=== PATIENT | female | born 1975 | race African-American/Black ===

== ENCOUNTER → 2017-01-05 | Outpatient (CLI) | payer BC, OTHER ==
--- NOTE | 2017-01-06 07:45 | MM ---
Reason for exam: screening (asymptomatic). Last mammogram was performed 1 year and 3 months ago. History: Patient is postmenopausal. Family history of breast cancer in aunt at age 40. Physical Findings: A clinical breast exam by your physician is recommended on an annual basis and results should be correlated with mammographic findings. MG Screening Mammo w CAD Bilateral CC and MLO view(s) were taken. Prior study comparison: October 17, 2015, bilateral MG screening mammo w CAD. August 03, 2014, bilateral MG diagnostic mammo w CAD NATALIE. The breast tissue is heterogeneously dense. This may lower the sensitivity of mammography. No significant changes when compared with prior studies. ASSESSMENT: Negative, BI-RAD 1 RECOMMENDATION: Routine screening mammogram of both breasts in 1 year.
== END | disposition home or self-care (01) ==
LOC: RADMAMWWP 07:15
PROVIDERS: ATTEND Obstetrics & Gynecology
DX: Z12.31 Encounter for screening mammogram for malignant neoplasm of breast (principal)

== ENCOUNTER 2017-06-17 13:08 | Emergency (ER) | payer OTHER ==
[2017-06-17] MEDS ORDERED: FAMOTIDINE 20 MG/2 ML VIAL IV STA (13:42)
[2017-06-17] MEDS ORDERED: SODIUM CHLORIDE 0.9% 1,000 ML IV STA (13:42)
[2017-06-17] MEDS ORDERED: METOCLOPRAMIDE 5 MG/ML 2 ML VIAL IVP STA (13:43)
--- NOTE | 2017-06-17 13:58 | ED ---
General Adult HPI - General Chief complaint: Abdominal Pain Stated complaint: Abd Pain Time Seen by Provider: 06/17/17 13:18 Source: patient, RN notes reviewed Mode of arrival: ambulatory Limitations: no limitations - History of Present Illness Initial comments: 42 yo female presents to the ER with cc of chronic abdominal pain. Patient states she has had this pain on and off for the last few months. Patient stated was on the center abdomen in and out to the sides. Patient states she has nausea without vomiting. Patient states she started after he did some stool studies and some blood work he stated everything looked good. She states today that the pain is just here and it seems worse so she thought that she should be seen. He doesn't history of diabetes. Patient denies any abdominal surgeries. Patient states this pain started over the last few months. Patient denies any other symptoms at this time. Patient denies any recent fever, chills , shortness of breath, chest pain, back pain, vomiting, numbness or tingling, dysuria or hematuria, constipation or diarrhea, headaches or visual changes, or any other current symptoms. - Related Data Home Medications Medication Instructions Recorded Confirmed Cholecalciferol (Vitamin D3) 2,000 unit PO DAILY 06/17/17 06/17/17 [Vitamin D3] Glimepiride [Amaryl] 1 mg PO AC-BID 06/17/17 06/17/17 Multivitamins, Thera [Multivitamin 1 tab PO DAILY 06/17/17 06/17/17 (formulary)] Sumner-3 Fatty Acids/Fish Oil [Fish 1 cap PO DAILY 06/17/17 06/17/17 Oil 1,000 mg Softgel] Pravastatin Sodium [Pravachol] 40 mg PO HS 06/17/17 06/17/17 metFORMIN HCL 1,000 mg PO BID 06/17/17 06/17/17 sitaGLIPtin [Januvia] 100 mg PO DAILY 06/17/17 06/17/17 Previous Rx's Medication Instructions Recorded Ciprofloxacin HCl [Cipro] 500 mg PO Q12HR #14 tablet 06/17/17 Ondansetron Odt [Zofran ODT] 4 mg PO Q8HR PRN #20 tab 06/17/17 metroNIDAZOLE [Flagyl] 500 mg PO TID #21 tab 06/17/17 Allergies Allergy/AdvReac Type Severity Reaction Status Date / Time No Known Allergies Allergy Verified 06/17/17 13:33 Review of Systems ROS Statement: Those systems with pertinent positive or pertinent negative responses have been documented in the HPI. ROS Other: All systems not noted in ROS Statement are negative. Past Medical History Past Medical History: Diabetes Mellitus History of Any Multi-Drug Resistant Organisms: None Reported Past Surgical History: Appendectomy, Cholecystectomy, Hysterectomy Past Psychological History: No Psychological Hx Reported Smoking Status: Current every day smoker Past Alcohol Use History: Rare Past Drug Use History: None Reported General Exam - General Exam Comments Initial Comments: General: The patient is awake and alert, in no distress, and does not appear acutely ill. Eye: Pupils are equal, round and reactive to light, extra-ocular movements are intact; there is normal conjunctiva bilaterally. No signs of icterus. Ears, nose, mouth and throat: There are moist mucous membranes. Neck: The neck is supple, there is no tenderness. Cardiovascular: There is a regular rate and rhythm. No murmur, rub or gallop is appreciated. Respiratory: Lungs are clear to auscultation, respirations are non-labored, breath sounds are equal. No wheezes, stridor, rales, or rhonchi. Gastrointestinal: Soft, non-distended, non-tender abdomen without masses or organomegaly noted. There is no rebound or guarding present. No CVA tenderness. Bowel sounds are unremarkable. Back: There is no tenderness to palpation in the midline. There is no obvious deformity. No rashes noted. Musculoskeletal: Normal ROM, no tenderness, There is no pedal edema. There is no calf tenderness or swelling. Sensation intact. Pulses equal bilaterally 2+. Neurological: CN II-XII intact, There are no obvious motor or sensory deficits. Coordination appears grossly intact. Speech is normal. Skin: Skin is warm and dry and no rashes or lesions are noted. Psychiatric: Cooperative, appropriate mood & affect, normal judgment. Limitations: no limitations Course Vital Signs 06/17/17 06/17/17 13:11 14:40 Temperature 98.2 F 97.1 F L Pulse Rate 90 77 Respiratory 16 20 Rate Blood Pressure 152/83 129/74 O2 Sat by Pulse 100 100 Oximetry Medical Decision Making - Medical Decision Making 42-year-old female presents to the emergency department with a chief complaint of chronic abdominal pain. At this time lab work was reviewed that shows mildly elevated lipase. CAT scan shows colitis versus diverticulitis. We will treat her diverticulitis. We discussed follow-up with with GI. We discussed using medications as prescribed. Discussed return parameters all patient's questions. Patient stated she understood and she is given plan. All questions have been answered. Patient will be discharged home. - Lab Data Result diagrams: 06/17/17 13:53 06/17/17 13:53 Lab Results 06/17/17 06/17/17 06/17/17 Range/Units 13:53 13:53 13:53 WBC 8.5 (3.8-10.6) k/uL RBC 4.89 (3.80-5.40) m/uL Hgb 15.6 (11.4-16.0) gm/dL Hct 45.3 (34.0-46.0) % MCV 92.6 (80.0-100.0) fL MCH 32.0 (25.0-35.0) pg MCHC 34.6 (31.0-37.0) g/dL RDW 14.3 (11.5-15.5) % Plt Count 448 (150-450) k/uL Neutrophils % 49 % Lymphocytes % 44 % Monocytes % 4 % Eosinophils % 2 % Basophils % 1 % Neutrophils # 4.2 (1.3-7.7) k/uL Lymphocytes # 3.7 (1.0-4.8) k/uL Monocytes # 0.3 (0-1.0) k/uL Eosinophils # 0.2 (0-0.7) k/uL Basophils # 0.1 (0-0.2) k/uL Sodium 141 (137-145) mmol/L Potassium 4.2 (3.5-5.1) mmol/L Chloride 105 (98-107) mmol/L Carbon Dioxide 22 (22-30) mmol/L Anion Gap 14 mmol/L BUN 9 (7-17) mg/dL Creatinine 0.69 (0.52-1.04) mg/dL Est GFR (MDRD) Af Amer >60 (>60 ml/min/1.73 sqM) Est GFR (MDRD) Non-Af >60 (>60 ml/min/1.73 sqM) Glucose 117 H (74-99) mg/dL Calcium 9.9 (8.4-10.2) mg/dL Total Bilirubin 0.3 (0.2-1.3) mg/dL AST 21 (14-36) U/L ALT 34 (9-52) U/L Alkaline Phosphatase 75 (38-126) U/L Total Protein 7.5 (6.3-8.2) g/dL Albumin 4.7 (3.5-5.0) g/dL Amylase 67 (30-110) U/L Lipase 347 H (23-300) U/L Urine Color Light Yellow Urine Appearance Clear (Clear) Urine pH 6.0 (5.0-8.0) Ur Specific Atco 1.007 (1.001-1.035) Urine Protein Negative (Negative) Urine Glucose (UA) Negative (Negative) Urine Ketones Negative (Negative) Urine Blood Trace H (Negative) Urine Nitrite Negative (Negative) Urine Bilirubin Negative (Negative) Urine Urobilinogen <2.0 (<2.0) mg/dL Ur Leukocyte Esterase Negative (Negative) Urine RBC 2 (0-5) /hpf Urine WBC <1 (0-5) /hpf Ur Squamous Epith Cells 1 (0-4) /hpf Urine Bacteria Rare H (None) /hpf Urine Mucus Rare H (None) /hpf - Radiology Data Radiology results: report reviewed, image reviewed Disposition Clinical Impression: Colitis, Elevated lipase, Diverticulitis Disposition: HOME SELF-CARE Condition: Stable Instructions: Colitis (ED), Diverticulitis (ED) Additional Instructions: Please use medication as discussed. Please follow up with family doctor if symptoms have not improved over the next two days. Please return to the emergency room if your symptoms increase or worsen or for any other concerns. Prescriptions: Ciprofloxacin HCl [Cipro] 500 mg PO Q12HR #14 tablet metroNIDAZOLE [Flagyl] 500 mg PO TID #21 tab Ondansetron Odt [Zofran ODT] 4 mg PO Q8HR PRN #20 tab PRN Reason: Nausea Referrals: Bijan Sawyer MD [Primary Care Provider] - 1-2 days Time of Disposition: 15:31
[2017-06-17 14:18] LABS: Basophils # (A) 0.1 k/uL (0-0.2); Basophils % (A) 1 %; CH 33.2; Eosinophils # (A) 0.2 k/uL (0-0.7); Eosinophils % (A) 2 %; HCT 45.3 % (34.0-46.0); HDW 3.01; HGB 15.6 gm/dL (11.4-16.0); Luc # (Auto) 0.09; Luc % (Auto) 1; Lymphocytes # (A) 3.7 k/uL (1.0-4.8); Lymphocytes % (A) 44 %; MCHC 34.6 g/dL (31.0-37.0); MCV 92.6 fL (80.0-100.0); Mean Platelet Volume 6.7; Monocytes # (A) 0.3 k/uL (0-1.0); Monocytes % (A) 4 %; Neutrophils # (A) 4.2 k/uL (1.3-7.7); Neutrophils % (A) 49 %; RBC 4.89 m/uL (3.80-5.40); RDW 14.3 % (11.5-15.5); WBC 8.5 k/uL (3.8-10.6); WBC (Perox) 8.94
[2017-06-17 14:25] LABS: Appearance,Urine Clear (Clear); Bacteria,Urine Rare /hpf; Bilirubin,Urine Negative (Negative); Glucose,Urine (UA) Negative (Negative); Ketones,Urine Negative (Negative); Leukocyte Esterase,Urine Negative (Negative); Mucus,Urine Rare /hpf; Nitrite,Urine Negative (Negative); Particle Count 884; Protein,Urine Negative (Negative); RBC,Urine 2 /hpf (0-5); Specific Gravity,Urine 1.007 (1.001-1.035); Squamous Epithelial Cell,Urine 1 /hpf (0-4); UA Billing (MACRO vs. MICRO) MICRO; Urobilinogen,Urine <2.0 mg/dL (<2.0); WBC,Urine <1 /hpf (0-5)
[2017-06-17 14:31] LABS: ALT 34 U/L (9-52); AST 21 U/L (14-36); Alkaline Phosphatase 75 U/L (38-126); Amylase 67 U/L (30-110); Anion Gap 14 mmol/L; Blood Urea Nitrogen 9 mg/dL (7-17); Calcium 9.9 mg/dL (8.4-10.2); Carbon Dioxide 22 mmol/L (22-30); Chloride 105 mmol/L (98-107); Glucose 117 mg/dL (74-99); Non-African American GFR(MDRD) >60 (>60 ml/min/1.73 sqM); Potassium 4.2 mmol/L (3.5-5.1); Sodium 141 mmol/L (137-145); Total Bilirubin 0.3 mg/dL (0.2-1.3); Total Protein 7.5 g/dL (6.3-8.2)
[2017-06-17] MEDS ORDERED: RX INFO: IV CONTRAST WAS GIVEN 1 EACH MISC MISCELLANE PRN (14:37)
[2017-06-17 14:41] VITALS: TEMP 97.1
--- NOTE | 2017-06-17 15:23 | CT ---
EXAMINATION TYPE: CT abdomen pelvis w con DATE OF EXAM: 06/17/2017 HISTORY: Generalized abdominal pain with nausea and chills. CT DLP: 1085.00mGycm Automated Exposure Control for Dose Reduction was Utilized. CONTRAST: CT scan of the abdomen and pelvis is performed with IV Contrast, patient injected with 100 mL of Omni paque 300. COMPARISON: 04/08/2011 FINDINGS: LUNG BASES: No significant abnormality is appreciated. LIVER/GB: Focal fatty infiltration is seen as a geographic wedge-shaped area of hypoattenuation in se gment IVb near the fissure for the ligamentum teres. Remainder of the liver is grossly unremarkable w ith no evidence of intrahepatic biliary ductal dilatation. Cholecystectomy clips are noted within the gallbladder fossa.. PANCREAS: No significant abnormality is seen. SPLEEN: No significant abnormality is seen. ADRENALS: No significant abnormality is seen. KIDNEYS: No significant abnormality is seen. BOWEL: The descending colon is predominantly decompressed but felt to display mild colonic thickening with subtle inflammatory fat stranding as seen on series 3 image 47 and 48. Single adjacent divertic ulum is noted. Thickening is suspected to measure up to 1.1 cm. Transverse colon, ascending colon and cecum are stool and air-filled without bowel wall thickening. Diastases recti is incidentally noted. UTERUS/ADNEXA: 2.0 cm left adnexal lesion likely represents a dominant follicle. LYMPH NODES: No greater than 1cm abdominal or pelvic lymph nodes are appreciated. OSSEOUS STRUCTURES: Bilateral sacroiliac joint sclerosis, more notably on the iliac bones may be dege nerative or could be related to inflammatory bowel disease. This is thought to be considered less lik aline. IMPRESSION: 1. Mild bowel wall thickening and subtle pericolonic fat stranding of the descending colon thought to represent mild colitis versus early diverticulitis is a single adjacent diverticulum is seen. 2. Probable dominant left ovarian cyst. 3. Symmetric sacroiliac joint sclerosis is likely degenerative, however can be associated with inflam matory bowel disease.
[2017-06-17 15:57] VITALS: BP 133/78; PULSE 76; RESP 16
== END 2017-06-17 15:56 | disposition home or self-care (01) ==
LOC: EC 13:08
DX: K52.9 Noninfective gastroenteritis and colitis, unspecified (principal); K57.92 Diverticulitis of intestine, part unspecified, without perforation or abscess without bleeding; R74.8 Abnormal levels of other serum enzymes; E11.9 Type 2 diabetes mellitus without complications; F17.200 Nicotine dependence, unspecified, uncomplicated; Z79.84 Long term (current) use of oral hypoglycemic drugs; Z79.899 Other long term (current) drug therapy; Z90.49 Acquired absence of other specified parts of digestive tract
CPT/HCPCS: 36415; 80053; 82150; 83690; 85025; 81001; 74177; 99284; 96374; 96375; 96361 ×2; J2765; Q9967

== ENCOUNTER 2018-05-10 07:11 | Day surgery (SDC) | payer OTHER ==
[2018-05-06 13:21] VITALS: BMI 25.6
[~2018-05-10 07:11] MED LIST: LACTATED RINGERS 1,000 ML IV SCH; LIDOCAINE 1% 20 ML VIAL (10MG/ML) FOR IV START INTRADERMA PRN; MIDAZOLAM 2 MG/2 ML VIAL IV PRN
[2018-05-10 07:50] VITALS: TEMP 98.2
[2018-05-10 07:55] LABS: Glucose,Whole Blood 207 mg/dL (75-99)
[2018-05-10] MEDS ORDERED: PROPOFOL 10 MG/ML 20 ML VIAL IV ONE (08:23)
[2018-05-10] MEDS ORDERED: GLYCOPYRROLATE 0.2 MG/ML 2 ML VIAL ONE (08:23)
[2018-05-10] MEDS ORDERED: LIDOCAINE 1% INJ 10MG/ML (20 ML MDV) ONE (08:23)
[2018-05-10 09:02] VITALS: RESP 18
--- NOTE | 2018-05-10 09:03 | P.PCN ---
Date of Procedure: 05/10/18 Procedure(s) Performed: Procedure: 1. Esophagogastroduodenoscopy and biopsy. 2. Coloscopy and polypectomy and biopsy. Preoperative diagnosis: Change in bowel habits and blood in the stools. Postoperative diagnosis: 1. Small sliding hiatal hernia with no obvious esophagitis or complicated reflux disease. 2. Mild antral gastritis. 3. Small sigmoid polyp snared but no large polyps or cancer or other abnormalities in the colon. 4. Biopsies obtained from the right colon to rule out microscopic colitis. 5. Low-grade internal hemorrhoids without bleeding at the time of this exam. Preparation: HalfLytely prep. Sedation: Was provided by anesthesia. Brief clinical history: The patient is a 42-year-old female who is scheduled for this evaluation for the above reasons. The purposes to rule out inflammatory bowel disease, neoplasia or celiac disease. Procedure: With the patient on her left lateral decubitus position and after informed consent and adequate sedation, I passed the Olympus-GIF 160 video upper endoscope through the cricopharyngeus down the esophagus. GE junction was around 36 cm from the incisors and there was a small sliding hiatal hernia but no obvious esophagitis or complicated reflux disease. The endoscope was then passed into the stomach which was insufflated with air and inspected in detail including the retroflex view in the cardia. There was some mottling and erythema in the antrum consistent with mild gastritis but no ulcers or erosions. Pyloric channel, duodenal bulb, post bulbar area and descending duodenum appeared within normal limits. I obtained biopsies from the duodenum antrum and esophagus then the endoscope was withdrawn and I proceeded with the colonoscopy. Perianal area did not show any fissures or fistulas. There were no masses felt on digital rectal examination. The Olympus CFQ 160L video colonoscope was then inserted in the rectum in the usual fashion and advanced to the cecum. There was a small polyp in the distal sigmoid which I snared and retrieved by suction but there were no large polyps or cancer. The mucosa appeared healthy. He was no obvious diverticular disease or other pathology. I obtained biopsies from the right colon to rule out microscopic colitis. I retroflexed the endoscope in the rectum before the endoscope was withdrawn. Low-grade internal hemorrhoids were noted with no evidence of bleeding. The patient tolerated the procedure well. Plan: The patient was reassured. Will await biopsy results and make additional recommendations. I anticipate repeating her colonoscopy in 5 years. She will follow-up with you as planned.
[2018-05-10 09:28] VITALS: BP 130/86; PULSE 77
[2018-05-10 12:17] LABS: Glucose,Whole Blood 173 mg/dL (75-99)
== END 2018-05-10 09:51 | disposition home or self-care (01) ==
LOC: ORWHC2ENDO 07:11
DX: K29.51 Unspecified chronic gastritis with bleeding (principal); B96.81 Helicobacter pylori [H. pylori] as the cause of diseases classified elsewhere; K44.9 Diaphragmatic hernia without obstruction or gangrene; K64.8 Other hemorrhoids; D12.5 Benign neoplasm of sigmoid colon; E78.5 Hyperlipidemia, unspecified; F17.210 Nicotine dependence, cigarettes, uncomplicated; E11.9 Type 2 diabetes mellitus without complications; Z79.84 Long term (current) use of oral hypoglycemic drugs; Z79.899 Other long term (current) drug therapy
CPT/HCPCS: 88305; 88342; 45380; 45385; 43239; J2001; J2704

== ENCOUNTER → 2018-12-07 | Outpatient (CLI) | payer OTHER ==
--- NOTE | 2018-12-07 09:18 | US ---
EXAMINATION TYPE: US thyroid st tissue head/neck DATE OF EXAM: 12/07/2018 COMPARISON: NONE; NM exam today CLINICAL HISTORY: E05.90 thyrotoxicosis, unspecified without thyrotox;; hyperthyroidism GLAND SIZE: Right Lobe: 4.8 x 1.5 x 1.2 cm Overall Parenchyma: homogenous Left Lobe: 4.2 x 1.6 x 1.3 cm Overall Parenchyma: homogeneous Isthmus Thickness: 0.47 cm NODULES RIGHT: # of nodules measured on right: 0 LEFT: # of nodules measured on left: 1 1. 0.4 X 0.2 x 0.1 cm hypoechoic cystic nodule at the mid pole with well-defined margins. This nod ule is wider than tall and shows no intranodular vascularity. ISTHMUS: # of nodules measured in the isthmus: 0 Bilateral neck scanned: no evidence of lymphadenopathy. IMPRESSION: Subcentimeter nonspecific nodule left thyroid lobe. Mild thyroid enlargement.
[2018-12-07 11:21] LABS: T4, Free (Free Thyroxine) 0.97 ng/dL (0.78-2.19)
--- NOTE | 2018-12-08 11:59 | NM ---
EXAMINATION TYPE: NM thyroid image w uptake DATE OF EXAM: 12/08/2018 COMPARISON: 12/07/2018 ultrasound HISTORY: 43-year-old female thyrotoxicosis, unspecified TECHNIQUE: Thyroid iodine uptake is calculated and images performed after the oral administration of 300 uCi 1-123 Capsule. FINDINGS: Aside from a possible exophytic warm nodule from the lower pole of the right thyroid lobe, there is n ormal distribution of activity throughout the gland. The 4 hour iodine uptake is calculated at 10.5% (normal range 8-14%). The 24-hour iodine uptake is calculated at 21.7% (normal range 15-35%). IMPRESSION: 1. Possible partially exophytic warm nodule from the lower pole of the right thyroid lobe. Consider s hort interval follow-up thyroid ultrasound with particular attention to this region. 2. Otherwise, normal thyroid scan and uptake measurements.
== END | disposition home or self-care (01) ==
LOC: RADUSMAIN 08:21
PROVIDERS: ATTEND Internal Medicine Endocrinology, Diabetes & Metabolism
DX: E04.1 Nontoxic single thyroid nodule (principal); E05.90 Thyrotoxicosis, unspecified without thyrotoxic crisis or storm
CPT/HCPCS: 84439; 84445; 84443; 84480; 76536; 78014; A9516

== ENCOUNTER → 2019-03-30 | Outpatient (CLI) | payer OTHER ==
[2019-03-30 15:57] LABS: Basophils % (A) 0 %; Eosinophils # (A) 0.2 k/uL (0-0.7); Eosinophils % (A) 2 %; HCT 46.2 % (34.0-46.0); HGB 15.2 gm/dL (11.4-16.0); Lymphocytes # (A) 3.5 k/uL (1.0-4.8); Lymphocytes % (A) 33 %; MCH 30.7 pg (25.0-35.0); MCHC 32.9 g/dL (31.0-37.0); MCV 93.3 fL (80.0-100.0); Mean Platelet Volume 5.9; Monocytes # (A) 0.4 k/uL (0-1.0); Monocytes % (A) 4 %; Neutrophils # (A) 6.2 k/uL (1.3-7.7); Neutrophils % (A) 59 %; Platelet Count 476 k/uL (150-450); RBC 4.95 m/uL (3.80-5.40); RDW 12.2 % (11.5-15.5); WBC 10.5 k/uL (3.8-10.6)
[2019-03-30 16:04] LABS: Potassium 4.7 mmol/L (3.5-5.1)
[2019-03-30 16:05] LABS: ALT 18 U/L (9-52); AST 14 U/L (14-36); African American GFR (CKD) >90 (>60 ml/min/1.73 sqM); Albumin 4.8 g/dL (3.5-5.0); Alkaline Phosphatase 100 U/L (38-126); Anion Gap 11 mmol/L; Blood Urea Nitrogen 16 mg/dL (7-17); Calcium 10.7 mg/dL (8.4-10.2); Carbon Dioxide 30 mmol/L (22-30); Chloride 98 mmol/L (98-107); Glucose 112 mg/dL (74-99); Sodium 139 mmol/L (137-145); Total Bilirubin 0.4 mg/dL (0.2-1.3); Total Protein 7.9 g/dL (6.3-8.2)
--- NOTE | 2019-03-30 17:12 | CT ---
EXAMINATION TYPE: CT abdomen pelvis w con DATE OF EXAM: 03/30/2019 COMPARISON: 06/17/2017 HISTORY: Abdomen pain, constipation x1 week. Hx partial hysterectomy, appy, ramesh. CT DLP: 445.50 mGycm Automated exposure control for dose reduction was used. TECHNIQUE: Helical acquisition of images was performed from the lung bases through the pelvis. CONTRAST: Performed with Oral Contrast and with IV Contrast, patient injected with 100 mL of Isovue 300. FINDINGS: Lung bases are clear. There is no pleural effusion. Heart appears normal. Liver spleen pancreas appear normal. Bile ducts are not dilated. There are clips from cholecystectomy . Stomach appears normal. There is no adrenal mass. Kidneys show satisfactory contrast opacification. There is no hydronephrosi s. Ureters are not dilated. There is no retroperitoneal adenopathy. There are scattered retroperitone al lymph nodes measure less than 1 cm. Bladder distends smoothly. There is apparent hysterectomy. The re is 5.5 cm thin-walled cystic mass in the pelvis on the left sided could be ovarian cyst. There is no free fluid in the pelvis. There is no inguinal hernia. There is no mesenteric edema. There is no evidence of a bowel obstruction. There is no ascites or olivia e air. There is no definite intestinal wall thickening. Lumbar vertebra have normal spacing and align ment. Bony pelvis is intact. I see no focal bone destruction. IMPRESSION: THERE IS A LARGE CYST ON THE LEFT SIDE OF THE PELVIS CONSISTENT WITH OVARIAN CYST THAT IS SIGNIFICANT LY INCREASED IN SIZE COMPARED TO OLD CT SCAN.
[2019-03-30 17:19] LABS: Erythrocyte Sedimentation Rate 54 mm/hr (0-20)
== END | disposition home or self-care (01) ==
LOC: RADCTMAIN 14:48
PROVIDERS: ATTEND Internal Medicine
DX: N94.89 Other specified conditions associated with female genital organs and menstrual cycle (principal); R10.9 Unspecified abdominal pain
CPT/HCPCS: 80053; 85652; 85025; 74177; 36415; Q9967 ×2

== ENCOUNTER 2019-10-13 18:57 | Emergency (ER) | payer OTHER ==
[2019-10-13 19:15] VITALS: RESP 18
[2019-10-13] MEDS ORDERED: SODIUM CHLORIDE 0.9% 1,000 ML IV STA (19:29)
[2019-10-13] MEDS ORDERED: KETOROLAC 30 MG/ML 1 ML VIAL IVP STA (19:29)
--- NOTE | 2019-10-13 19:58 | ED ---
Abdominal Pain HPI - General Chief Complaint: Abdominal Pain Stated Complaint: Rt sided flank pain Time Seen by Provider: 10/13/19 19:16 Source: patient Mode of arrival: ambulatory Limitations: no limitations - History of Present Illness Initial Comments: Patient is a 44-year-old female presenting to emergency Department with complaints of right flank pain with radiation that has been increasing over the past 5 days. Patient states the pain started in her right flank and has been extending onto her right side and even down into her right lower quadrant. Patient does have a history of cholecystectomy, appendectomy, partial hysterectomy. She denies history kidney stones. Patient states she went to her [facility] last week and was diagnosed with a yeast infection so she has been taking medicine for that. Patient denies any other vaginal complaints. No concerns for STDs. She did have some dysuria last week when she went to the city planning aide office that they said there is no signs of infection on her UA. Patient has been having regular bowel movements. She denies fever, vomiting, diarrhea. She does admit to mild nausea. She states she's never had this kind of pain before. She describes it as very sharp and constant in nature. She denies any trauma or injuries. She has no other complaints at this time. Upon arrival to ER, patient was slightly tachycardia at 105, rest of vitals are normal. - Related Data Home Medications Medication Instructions Recorded Confirmed Cholecalciferol (Vitamin D3) 2,000 unit PO DAILY 06/17/17 05/06/18 [Vitamin D3] Glimepiride [Amaryl] 1 mg PO AC-BID 06/17/17 05/06/18 Multivitamins, Thera [Multivitamin 1 tab PO DAILY 06/17/17 05/06/18 (formulary)] [place]-3 Fatty Acids/Fish Oil [Fish 1 cap PO DAILY 06/17/17 05/06/18 Oil 1,000 mg Softgel] Pravastatin Sodium [Pravachol] 40 mg PO HS 06/17/17 05/10/18 metFORMIN HCL 1,000 mg PO BID 06/17/17 05/06/18 sitaGLIPtin [Januvia] 100 mg PO DAILY 06/17/17 05/10/18 Previous Rx's Medication Instructions Recorded Ketorolac [Toradol] 10 mg PO Q8HR #15 tab 10/13/19 Tamsulosin [Flomax] 0.4 mg PO DAILY #7 cap 10/13/19 Allergies Allergy/AdvReac Type Severity Reaction Status Date / Time No Known Allergies Allergy Verified 10/13/19 19:12 Review of Systems ROS Statement: Those systems with pertinent positive or pertinent negative responses have been documented in the HPI. ROS Other: All systems not noted in ROS Statement are negative. Past Medical History Past Medical History: Diabetes Mellitus Additional Past Medical History / Comment(s): hx blood in stool History of Any Multi-Drug Resistant Organisms: None Reported Past Surgical History: Appendectomy, Cholecystectomy, Hysterectomy Past Anesthesia/Blood Transfusion Reactions: No Reported Reaction Past Psychological History: No Psychological Hx Reported Smoking Status: Current every day smoker Past Alcohol Use History: Occasional Past Drug Use History: None Reported - Past Family History Father Family Medical History: Cancer General Exam - General Exam Comments Initial Comments: GENERAL: Patient is sitting very still on the side of the bed, appears very uncomfortable.. HEAD: Atraumatic, normocephalic. EYES: Pupils equal round and reactive to light, extraocular movements intact, sclera anicteric, conjunctiva are normal. ENT: TMs normal, nares patent, oropharynx clear without exudates. Moist mucous membranes. NECK: Normal range of motion, supple without lymphadenopathy or JVD. LUNGS: Breath sounds clear to auscultation bilaterally and equal. No wheezes rales or rhonchi. HEART: Regular rate and rhythm without murmurs, rubs or gallops. ABDOMEN: Tender to palpation of the right side of the abdomen, right flank pain. No left-sided abdominal pain. No lower quadrant pain. Soft, normoactive bowel sounds. No masses appreciated. : Deferred EXTREMITIES: Normal range of motion, no pitting or edema. No clubbing or cyanosis. NEUROLOGICAL: Normal speech, normal gait. PSYCH: Normal mood, normal affect. SKIN: Warm, Dry, normal turgor, no rashes or lesions noted. Limitations: no limitations Course Vital Signs 10/13/19 10/13/19 19:12 22:08 Temperature 98 F 97.4 F L Pulse Rate 105 H 71 Respiratory 18 18 Rate Blood Pressure 135/78 130/91 O2 Sat by Pulse 99 99 Oximetry Medical Decision Making - Medical Decision Making Patient is a 44-year-old female presenting with right flank pain for the past 5 days. Positive nausea. No fever, no vomiting. Vital signs are stable. Back shows no acute abnormalities, elevated glucose and 4+ glucose in the urine. Patient is diabetic. Computed tomography scan of the abdomen and pelvis reveals right-sided hydronephrosis and hydroureter consistent with an obstruction. There is no calculus is seen and this could be related to nonopaque stone or recently passed stone. No other acute abnormalities. Patient was given some fluids and Toradol reports a huge improvement in her symptoms. Discussed these findings with the patient. Patient is stable for discharge at this time. She was discharged with Toradol, Zofran, Flomax for possible kidney stone. She will follow up with urology. She is in agreement this plan and care. Return parameters were discussed with the patient she verbalized understanding. Case discussed with Dr. Panda. - Lab Data Result diagrams: 10/13/19 20:56 10/13/19 20:56 Lab Results 10/13/19 10/13/19 10/13/19 Range/Units 20:56 20:56 20:56 WBC 11.6 H (3.8-10.6) k/uL RBC 4.86 (3.80-5.40) m/uL Hgb 15.8 (11.4-16.0) gm/dL Hct 46.7 H (34.0-46.0) % MCV 96.0 (80.0-100.0) fL MCH 32.5 (25.0-35.0) pg MCHC 33.8 (31.0-37.0) g/dL RDW 12.6 (11.5-15.5) % Plt Count 341 (150-450) k/uL Neutrophils % 63 % Lymphocytes % 28 % Monocytes % 4 % Eosinophils % 2 % Basophils % 2 % Neutrophils # 7.3 (1.3-7.7) k/uL Lymphocytes # 3.2 (1.0-4.8) k/uL Monocytes # 0.5 (0-1.0) k/uL Eosinophils # 0.2 (0-0.7) k/uL Basophils # 0.2 (0-0.2) k/uL PT 9.3 (9.0-12.0) sec INR 0.9 (<1.2) APTT 21.3 L (22.0-30.0) sec Sodium 142 (137-145) mmol/L Potassium 4.4 (3.5-5.1) mmol/L Chloride 107 (98-107) mmol/L Carbon Dioxide 23 (22-30) mmol/L Anion Gap 12 mmol/L BUN 15 (7-17) mg/dL Creatinine 0.71 (0.52-1.04) mg/dL Est GFR (CKD-EPI)AfAm >90 (>60 ml/min/1.73 sqM) Est GFR (CKD-EPI)NonAf >90 (>60 ml/min/1.73 sqM) Glucose 175 H (74-99) mg/dL Calcium 10.0 (8.4-10.2) mg/dL Total Bilirubin 0.4 (0.2-1.3) mg/dL AST 20 (14-36) U/L ALT 16 (4-34) U/L Alkaline Phosphatase 96 (38-126) U/L Total Protein 7.7 (6.3-8.2) g/dL Albumin 4.7 (3.5-5.0) g/dL Urine Color Urine Appearance (Clear) Urine pH (5.0-8.0) Ur Specific [place] (1.001-1.035) Urine Protein (Negative) Urine Glucose (UA) (Negative) Urine Ketones (Negative) Urine Blood (Negative) Urine Nitrite (Negative) Urine Bilirubin (Negative) Urine Urobilinogen (<2.0) mg/dL Ur Leukocyte Esterase (Negative) Urine RBC (0-5) /hpf Urine WBC (0-5) /hpf Ur Squamous Epith Cells (0-4) /hpf 10/13/19 Range/Units 20:56 WBC (3.8-10.6) k/uL RBC (3.80-5.40) m/uL Hgb (11.4-16.0) gm/dL Hct (34.0-46.0) % MCV (80.0-100.0) fL MCH (25.0-35.0) pg MCHC (31.0-37.0) g/dL RDW (11.5-15.5) % Plt Count (150-450) k/uL Neutrophils % % Lymphocytes % % Monocytes % % Eosinophils % % Basophils % % Neutrophils # (1.3-7.7) k/uL Lymphocytes # (1.0-4.8) k/uL Monocytes # (0-1.0) k/uL Eosinophils # (0-0.7) k/uL Basophils # (0-0.2) k/uL PT (9.0-12.0) sec INR (<1.2) APTT (22.0-30.0) sec Sodium (137-145) mmol/L Potassium (3.5-5.1) mmol/L Chloride (98-107) mmol/L Carbon Dioxide (22-30) mmol/L Anion Gap mmol/L BUN (7-17) mg/dL Creatinine (0.52-1.04) mg/dL Est GFR (CKD-EPI)AfAm (>60 ml/min/1.73 sqM) Est GFR (CKD-EPI)NonAf (>60 ml/min/1.73 sqM) Glucose (74-99) mg/dL Calcium (8.4-10.2) mg/dL Total Bilirubin (0.2-1.3) mg/dL AST (14-36) U/L ALT (4-34) U/L Alkaline Phosphatase (38-126) U/L Total Protein (6.3-8.2) g/dL Albumin (3.5-5.0) g/dL Urine Color Light Yellow Urine Appearance Clear (Clear) Urine pH 6.0 (5.0-8.0) Ur Specific [place] 1.022 (1.001-1.035) Urine Protein Negative (Negative) Urine Glucose (UA) 4+ H (Negative) Urine Ketones Negative (Negative) Urine Blood Trace H (Negative) Urine Nitrite Negative (Negative) Urine Bilirubin Negative (Negative) Urine Urobilinogen <2.0 (<2.0) mg/dL Ur Leukocyte Esterase Negative (Negative) Urine RBC 1 (0-5) /hpf Urine WBC 3 (0-5) /hpf Ur Squamous Epith Cells 1 (0-4) /hpf Disposition Clinical Impression: Right flank pain, Hydronephrosis, right Disposition: HOME SELF-CARE Condition: Stable Instructions (If sedation given, give patient instructions): Kidney Stones (ED) Additional Instructions: Please return to the Emergency Department if symptoms worsen or any other concerns. Take medications as prescribed. Follow up with urologist as discussed. Prescriptions: Tamsulosin [Flomax] 0.4 mg PO DAILY #7 cap Ketorolac [Toradol] 10 mg PO Q8HR #15 tab Is patient prescribed a controlled substance at d/c from ED?: No Referrals: Bijan Sawyer MD [Primary Care Provider] - 1-2 days
[2019-10-13 21:14] LABS: Basophils # (A) 0.2 k/uL (0-0.2); Basophils % (A) 2 %; Eosinophils # (A) 0.2 k/uL (0-0.7); Eosinophils % (A) 2 %; HCT 46.7 % (34.0-46.0); HGB 15.8 gm/dL (11.4-16.0); Lymphocytes # (A) 3.2 k/uL (1.0-4.8); Lymphocytes % (A) 28 %; MCH 32.5 pg (25.0-35.0); MCHC 33.8 g/dL (31.0-37.0); Mean Platelet Volume 6.6; Monocytes # (A) 0.5 k/uL (0-1.0); Monocytes % (A) 4 %; Neutrophils # (A) 7.3 k/uL (1.3-7.7); Neutrophils % (A) 63 %; Platelet Count 341 k/uL (150-450); RBC 4.86 m/uL (3.80-5.40); RDW 12.6 % (11.5-15.5); WBC 11.6 k/uL (3.8-10.6)
[2019-10-13 21:16] LABS: Appearance,Urine Clear (Clear); Bilirubin,Urine Negative (Negative); Blood,Urine Trace (Negative); Color,Urine Light Yellow; Glucose,Urine (UA) 4+ (Negative); Ketones,Urine Negative (Negative); Leukocyte Esterase,Urine Negative (Negative); Nitrite,Urine Negative (Negative); Protein,Urine Negative (Negative); RBC,Urine 1 /hpf (0-5); Specific Gravity,Urine 1.022 (1.001-1.035); Squamous Epithelial Cell,Urine 1 /hpf (0-4); Urobilinogen,Urine <2.0 mg/dL (<2.0); WBC,Urine 3 /hpf (0-5)
[2019-10-13 21:23] LABS: ALT 16 U/L (4-34); AST 20 U/L (14-36); African American GFR (CKD) >90 (>60 ml/min/1.73 sqM); Albumin 4.7 g/dL (3.5-5.0); Alkaline Phosphatase 96 U/L (38-126); Anion Gap 12 mmol/L; Blood Urea Nitrogen 15 mg/dL (7-17); Carbon Dioxide 23 mmol/L (22-30); Chloride 107 mmol/L (98-107); Glucose 175 mg/dL (74-99); Non-African American GFR(CKD) >90 (>60 ml/min/1.73 sqM); Potassium 4.4 mmol/L (3.5-5.1); Sodium 142 mmol/L (137-145); Total Bilirubin 0.4 mg/dL (0.2-1.3); Total Protein 7.7 g/dL (6.3-8.2)
[2019-10-13 21:35] LABS: INR 0.9 (<1.2); Partial Thromboplastin Time 21.3 sec (22.0-30.0); Prothrombin Time 9.3 sec (9.0-12.0)
--- NOTE | 2019-10-13 21:43 | CT ---
EXAMINATION TYPE: CT abdomen pelvis wo con DATE OF EXAM: 10/13/2019 COMPARISON: 03/30/2019 HISTORY: flank pain CT DLP: 392 mGycm Automated exposure control for dose reduction was used. Multiple axial sections were obtained from the diaphragm to the floor the pelvis without contrast. FINDINGS: Lung bases are clear. There is no pleural effusion. Heart size is normal. There is no pericardial eff usion. Liver spleen stomach pancreas appear normal. There are clips from cholecystectomy. Bile ducts are not dilated. Kidneys have normal contour. Right kidney appears enlarged with hydronephrosis and hydroureter. There is right side periureteral edema. No calculus is seen. Bladder distends smoothly. There is no inguin al hernia. There is no free fluid in the pelvis. Uterus appears absent. There is no evidence of a pelvic mass. There is no mesenteric edema. There is no ascites or free air. There is no sign of a bowel obstruction. Appendix is not definitely seen. There is no sign of thicke honorio appendix. The lumbar spine is intact. Bony pelvis is intact. IMPRESSION: There is right-sided hydronephrosis and hydroureter consistent with obstruction. This appears new com pared to old exam. No calculus seen. This could relate to nonopaque stone or recently passed stone. T here is clearing of the left side pelvic cyst compared to old exam.
[2019-10-13] MEDS ORDERED: ONDANSETRON 4 MG ODT STARTER PACK 2 TAB BTL PO STA (21:53)
[2019-10-13 22:09] VITALS: BP 130/91; PULSE 71; TEMP 97.4
== END 2019-10-13 22:12 | disposition home or self-care (01) ==
LOC: EC 18:57
DX: N13.30 Unspecified hydronephrosis (principal); E11.9 Type 2 diabetes mellitus without complications; F17.200 Nicotine dependence, unspecified, uncomplicated; Z79.84 Long term (current) use of oral hypoglycemic drugs; Z79.899 Other long term (current) drug therapy; Z90.49 Acquired absence of other specified parts of digestive tract
CPT/HCPCS: 36415; 80053; 85025; 85610; 85730; 81001; 74176; 99284; 96374; 96361; J1885; S0119

== ENCOUNTER → 2019-10-18 | Outpatient (CLI) | payer OTHER ==
--- NOTE | 2019-10-19 11:37 | MM ---
Reason for exam: screening (asymptomatic). Last mammogram was performed 1 year and 5 months ago. History: Patient is postmenopausal. Family history of breast cancer in aunt at age 40. Physical Findings: A clinical breast exam by your physician is recommended on an annual basis and results should be correlated with mammographic findings. MG Screening Mammo w CAD Bilateral CC and MLO view(s) were taken. Prior study comparison: May 20, 2018, bilateral MG screening mammo w CAD. January 05, 2017, bilateral MG screening mammo w CAD. The breast tissue is heterogeneously dense. This may lower the sensitivity of mammography. Asymmetric breast tissue left, stable. There is no discrete abnormality. ASSESSMENT: Benign, BI-RAD 2 RECOMMENDATION: Routine screening mammogram of both breasts in 1 year.
== END | disposition home or self-care (01) ==
LOC: RADMAMWWP 15:35
PROVIDERS: ATTEND Obstetrics & Gynecology
DX: Z12.31 Encounter for screening mammogram for malignant neoplasm of breast (principal)
CPT/HCPCS: 77067

== ENCOUNTER → 2022-06-03 | Outpatient (CLI) | payer BC ==
--- NOTE | 2022-06-03 08:00 | MM ---
Reason for Exam: Clinical finding. Last mammogram was performed 2 year(s) and 8 month(s) ago. Patient History: Menarche at age 12. First Full-Term at age 27. Left ovary removed at age 31. Right ovary removed at age 31. Hysterectomy at age 31. Postmenopausal. Maternal aunt had breast cancer, age 40. Risk Values: Yulissa 5 year model risk: 1.0%. NCI Lifetime model risk: 10.3%. Prior Study Comparison: 01/05/2017 Bilateral Screening Mammogram, [facility]. 05/20/2018 Bilateral Screening Mammogram, [facility]. 10/18/2019 Bilateral Screening Mammogram, [facility]. Tissue Density: The breast tissue is heterogeneously dense. This may lower the sensitivity of mammography. Findings: Analyzed By CAD. No new suspicious masses calcifications or distortions. No finding to correlate with patient's pain. Overall Assessment: Negative, BI-RAD 1 Management: Screening Mammogram of both breasts in 1 year. A clinical breast exam by your physician is recommended on an annual basis and results should be correlated with mammographic findings. This exam should not preclude additional follow-up of suspicious palpable abnormalities. Results were given to the patient verbally at the time of exam. Electronically signed and approved by: Jose Collado DO
== END | disposition home or self-care (01) ==
LOC: RADMAMWWP 06:52
PROVIDERS: ATTEND Obstetrics & Gynecology
DX: N64.4 Mastodynia (principal)
CPT/HCPCS: 77066

== ENCOUNTER → 2024-03-04 | Outpatient (CLI) | payer BC ==
[2024-03-04 13:23] LABS: Thyroid Peroxidase Antibodies 54.4 U/mL (0.0-33.0)
[2024-03-04 14:55] LABS: T4, Free (Free Thyroxine) 1.36 ng/dL (0.80-1.80); Testosterone <10.00 ng/dL (9.01-47.94)
[2024-03-04 16:37] LABS: Follicle Stimulating Hormone 55.5 mIU/mL; Luteinizing Hormone 47.4 mIU/mL; Progesterone 0.2 ng/mL
[2024-03-04 16:39] LABS: Estradiol <20.0 pg/mL
== END | disposition home or self-care (01) ==
LOC: LABWHC1 08:42
PROVIDERS: ATTEND Internal Medicine
DX: E03.9 Hypothyroidism, unspecified (principal); N95.1 Menopausal and female climacteric states
CPT/HCPCS: 36415; 82670; 83001; 83002; 84144; 84403; 84439; 84443; 84481; 86376; 86800

== ENCOUNTER → 2024-03-14 | Outpatient (CLI) | payer BC ==
--- NOTE | 2024-03-14 09:09 | US ---
EXAMINATION TYPE: US abdomen complete DATE OF EXAM: 03/14/2024 COMPARISON: CT 2019 CLINICAL INDICATION: Female, 48 years old with history of R10.9 ABDOMINAL PAIN; Abdomen pain x couple months TECHNIQUE: Multiple sonographic images of the abdomen are obtained. FINDINGS: EXAM MEASUREMENTS: Liver Length: 18.1 cm CBD: 0.5 cm Spleen: 9.1 cm Right Kidney: 9.9 x 5.4 x 4.8 cm Left Kidney: 10.1 x 5.3 x 4.6 cm Pancreas: visualized portions wnl, limited by overlying midline bowel gas Liver: enlarged, heterogeneous, increased attenuation, decreased visualization of vessels suggestive of fatty infiltrate Gallbladder: surgically absent Evidence for sonographic Sherman's sign: no CBD: visualized portions wnl, limited by overlying bowel gas Spleen: visualized portions wnl, limited by overlying bowel gas Right Kidney: wnl Left Kidney: wnl Upper IVC: wnl Abd Aorta: visualized portions wnl, limited by overlying midline bowel gas The liver is homogenous with increased echotexture.. The intrahepatic portion of the IVC and proxima l abdominal aorta are within normal limits. There is no evidence of cholelithiasis. Common bile oanh t is unremarkable. The visualized portions of the pancreas are homogenous. The spleen is unremarkab le. Kidneys are symmetric and free of hydronephrosis. No renal lesions are seen. IMPRESSION: 1. No evidence for acute process 2. Hepatic steatosis.
--- NOTE | 2024-03-15 08:45 | MM ---
Reason for Exam: Screening (asymptomatic). Last mammogram was performed 1 year(s) and 9 month(s) ago. Patient History: Menarche at age 12. First Full-Term at age 27. Left ovary removed at age 31. Right ovary removed at age 31. Hysterectomy at age 31. Postmenopausal. Maternal aunt had breast cancer, age 40. Risk Values: Yulissa 5 year model risk: 1.0%. NCI Lifetime model risk: 8.9%. Prior Study Comparison: 05/20/2018 Bilateral Screening Mammogram, [facility]. 10/18/2019 Bilateral Screening Mammogram, [facility]. 06/03/2022 Bilateral MG diagnostic mammo w CAD NATALIE, [facility]. Tissue Density: The breasts are heterogeneously dense, which may obscure small masses. Findings: Analyzed By CAD. There is no suspicious group of microcalcifications. Asymmetric density 10 cm from the nipple seen only on the right MLO view. Additional views of the right breast are to include a true lateral view, spot compression MLO view and outer CC view. No additional areas of asymmetric density seen. Overall Assessment: Incomplete: need additional imaging evaluation, BI-RAD 0 Management: Diagnostic Mammogram of the right breast. . Patient should continue monthly self-breast exams. A clinical breast exam by your physician is recommended on an annual basis. This exam should not preclude additional follow-up of suspicious palpable abnormalities. Note on Yulissa scores and lifetime risk: 1. A Yulissa score greater than 3% is considered moderate risk. If this is the case, consider specialist referral to assess eligibility for a risk reducing agent. 2. If overall lifetime risk for the development of breast cancer is 20% or higher, the patient may qualify for future screening with alternating mammogram and breast MRI. Electronically signed and approved by: Gabino Rosales M.D. Radiologis
== END | disposition home or self-care (01) ==
LOC: RADUSWWP 07:33
PROVIDERS: ATTEND Internal Medicine
DX: Z12.31 Encounter for screening mammogram for malignant neoplasm of breast (principal); K76.0 Fatty (change of) liver, not elsewhere classified; Z78.0 Asymptomatic menopausal state; Z80.3 Family history of malignant neoplasm of breast
CPT/HCPCS: 76700; 77063; 77067

== ENCOUNTER → 2024-03-16 | Outpatient (CLI) | payer BC ==
--- NOTE | 2024-03-16 13:49 | MM ---
Reason for Exam: Additional evaluation requested from abnormal screening. Last screening mammogram was performed less than 1 month ago. Patient History: Menarche at age 12. First Full-Term at age 27. Left ovary removed at age 31. Right ovary removed at age 31. Hysterectomy at age 31. Postmenopausal. Maternal aunt had breast cancer, age 40. Risk Values: Yulissa 5 year model risk: 1.0%. NCI Lifetime model risk: 8.9%. Prior Study Comparison: 05/20/2018 Bilateral Screening Mammogram, [facility]. 10/18/2019 Bilateral Screening Mammogram, [facility]. 06/03/2022 Bilateral MG diagnostic mammo w CAD NATALIE, [facility]. 03/14/2024 Bilateral MG 3D screening mammo w/cad, [facility]. Tissue Density: Right: The breasts are heterogeneously dense, which may obscure small masses. Findings: Analyzed By CAD. Area of concern appears less conspicuous on additional images obtained. Precautionary six-month follow-up of the right breast is advised. Overall Assessment: Probably benign, BI-RAD 3 Management: Diagnostic Mammogram of the right breast in 6 months. . Results were given to the patient verbally at the time of exam. Patient should continue monthly self-breast exams. A clinical breast exam by your physician is recommended on an annual basis. This exam should not preclude additional follow-up of suspicious palpable abnormalities. Note on Yulissa scores and lifetime risk: 1. A Yulissa score greater than 3% is considered moderate risk. If this is the case, consider specialist referral to assess eligibility for a risk reducing agent. 2. If overall lifetime risk for the development of breast cancer is 20% or higher, the patient may qualify for future screening with alternating mammogram and breast MRI. Electronically signed and approved by: Gabino Rosales M.D. Radiologis
== END | disposition home or self-care (01) ==
LOC: RADMAMWWP 13:18
PROVIDERS: ATTEND Internal Medicine
DX: R92.8 Other abnormal and inconclusive findings on diagnostic imaging of breast (principal); Z78.0 Asymptomatic menopausal state; Z80.3 Family history of malignant neoplasm of breast
CPT/HCPCS: 77061; 77065